=== PATIENT | male | born 1960 | race Hispanic/Latino ===

== ENCOUNTER 2017-09-16 06:42 | Observation (INO) | payer BC ==
[2017-09-16] MEDS ORDERED: NACL 0.9% 500 ML 500 ML IV SCH (07:00)
[2017-09-16] MEDS ORDERED: ECOTRIN PO ONE (07:00)
[2017-09-16 07:26] LABS: Basophils # (Auto) 0.1 K/mm3 (0.0-0.1); Basophils % (Auto) 1.2 % (0.0-1.8); Eosinophils # (Auto) 0.1 K/mm3 (0.0-0.4); Eosinophils % (Auto) 1.9 % (0.0-4.3); Hematocrit 41.3 % (35.5-45.6); Hemoglobin 14.4 gm/dl (11.8-15.2); Lymphocytes # (Auto) 1.7 K/mm3 (1.2-5.4); Lymphocytes % (Auto) 29.6 % (13.4-35.0); Mean Corpuscular HGB Conc 35 % (32-34); Mean Corpuscular Hemoglobin 28 pg (28-32); Mean Corpuscular Volume 80 fl (84-94); Monocytes # (Auto) 0.6 K/mm3 (0.0-0.8); Monocytes % (Auto) 10.8 % (0.0-7.3); Platelet Count 240 K/mm3 (140-440); Red Blood Count 5.16 M/mm3 (3.65-5.03); Red Cell Distribution Width 12.7 % (13.2-15.2)
[2017-09-16 07:36] LABS: BUN/Creatinine Ratio 17; Blood Urea Nitrogen 17 mg/dL (9-20); Calcium 8.7 mg/dL (8.4-10.2); Hemolysis Index 6; INR 0.97 (0.87-1.13)
[2017-09-16] MEDS ORDERED: VERSED ONE (08:24)
[2017-09-16] MEDS ORDERED: HEPARIN 10,000 UNITS/10 ML ONE (08:24)
[2017-09-16] MEDS ORDERED: XYLOCAINE 2% INFILTRATI ONE (08:24)
[2017-09-16] MEDS ORDERED: HEPARIN/NS 5000 UNIT/500ML(CATH LAB) 1,000 ML IR ONE (08:24)
[2017-09-16] MEDS ORDERED: CALAN ONE (08:24)
[2017-09-16] MEDS ORDERED: NITROGLYCERIN SYRINGE 3 ML ONE (08:24)
[2017-09-16] MEDS ORDERED: SUBLIMAZE ONE (08:25)
[2017-09-16] MEDS ORDERED: WATER FOR INJ (PF) 10 ML ONE (09:03)
[2017-09-16] MEDS ORDERED: NACL 0.9% 100 ML ONE (09:04)
[2017-09-16] MEDS: ANGIOMAX IV ONE ×2 (09:10→09:11)
[2017-09-16] MEDS ORDERED: AGGRASTAT DRIP (12.5 MG/250 ML) 12,500 MCG/250 ML BAG IV ONE (09:21)
[2017-09-16] MEDS ORDERED: EFFIENT PO ONE (09:22)
[2017-09-16] MEDS ORDERED: ALUM-MAG HYDROX-SIMETH 200-200-20MG/5ML ONE (09:22)
[2017-09-16] MEDS ORDERED: NITROSTAT SL PRN (09:43)
--- NOTE | 2017-09-16 10:52 | Cardiac Catherization Report ---
CARDIAC CATHETERIZATION REFERRING PHYSICIAN: Dr. Fauzia Saldana INDICATION FOR PROCEDURE: The patient is a pleasant 57-year-old gentleman with a history of CAD, PCI, hypertension, dyslipidemia. He has had a couple of episodes of dyspnea on exertion and has a significantly abnormal exercise stress test with inferior lateral ST depression. He is on multiple antianginal medications, referred for left heart catheterization. Risks, benefits, and potential alternatives explained at length prior to obtaining informed consent. PROCEDURE IN DETAIL: The patient was brought to the catheterization lab in a postabsorptive state, prepped and draped in sterile fashion. Live's test of the right hand was normal. A 2 mL of 2% lidocaine used to anesthetize the right wrist. A standard 6-Georgian hydrophilic sheath used to cannulate the right radial artery via modified Seldinger technique. All exchanges performed to exchange a J-tip guidewire. JL3.5 catheter used to engage the left main. No dampening or ventricularization. Cineangiography performed in all projections. JR4 catheter used to cross the aortic valve under fluoroscopic guidance. Left ventriculography performed in 30 NAVARRO and 30 SAUDI ARABIAN projections via hand injections, catheter flushed. Manual pullback performed with continuous pressure monitoring. Catheter used to engage the right coronary. No dampening or ventricularization. Cineangiography performed in all projections. Next, catheter removed from body of wire. DATA: Aortic pressure is 110/60, LV pressure is 110, LVEDP of 15 mmHg. Left ventriculography revealed normal systolic performance with estimated ejection fraction of 55% to 60%. No evidence of aortic stenosis or significant mitral regurgitation. The patient remained in normal sinus rhythm throughout the procedure. CORONARY ANATOMY: This is a right dominant system. Left main is without significant disease. It bifurcates in left anterior descending and left circumflex. Left system is somewhat small for an adult male. Left circumflex is a small to moderate sized vessel, courses AV groove, diminutive to AV groove circ, stent in the proximal OM1. There is a 99% stenosis just distal to this with BRIAN 2 flow. I believe this is the culprit vessel. Given abnormal stress test, the patient is already on multiple antianginals. LAD is a moderate sized vessel, courses anterior groove, intergroove, wraps around the apex, scattered luminal irregularities, but no obstructive disease identified. Right coronary is a moderate sized vessel, courses AV groove, distally bifurcates in the posterior descending branch, posterolateral branch. There is moderate diffuse small vessel disease in the ____ right PDA without significant disease. At this point, given markedly abnormal stress test symptoms and cardiac catheterization findings, we will proceed with PCI of culprit vessel, which is a 99% mid OM1. Angiomax was given. Abnormal ACT was confirmed. The patient was loaded with Effient and aspirin. EBU 3.5 guide used to engage the left main without difficulty. A Wayne wire used to cross the lesion without difficulty. A 2.0 x 12 balloon used to predilate the lesion without difficulty. We used a 2.25 x 12 Alpine Xience drug-eluting stent deployed at 12 MARIAMA for 30 seconds. Excellent angiographic result. Intracoronary nitroglycerin was given at 100 mcg. Intravascular ultrasound was performed and multiple passes were made. Intravascular ultrasound reveals apposed and well expanded stent. Mild disease in the proximal left circumflex, moderate diffuse small vessel disease distally. Left main without significant obstructive disease. Mild concentric plaque. No immediate complications, excellent angiographic result. SEDATION START TIME: 8:50 a.m. SEDATION STOP TIME: 9:30 a.m. I directly supervised the administration of moderate sedation with fentanyl and Versed. CONCLUSIONS: 1. Severe single vessel coronary artery disease with 99% OM1 culprit stenosis. A successful IVUS guided PCI with placement of drug-eluting stent (Xience Alpine 2.25 x 12 with excellent final angiographic and ultrasonographic result). Mild nonobstructive disease in the LAD and right coronary. Left main is patent. 2. Normal left ventricular systolic performance, estimated ejection fraction of 55% to 60%. 3. No evidence of aortic stenosis. 4. Normal LVEDP. The patient has been loaded with aspirin and Effient, will be standard radial care. Results of the procedure were explained at length to the patient and family. All questions and concerns were addressed. Follow up with Dr. Fauzia Saldana in the office. JOB# [id number]/[id number]
[2017-09-16] MEDS: TENORMIN PO SCH ×2 (15:47→22:50)
[2017-09-16] MEDS: CAPOTEN PO SCH (22:50)
[2017-09-17 07:04] LABS: Basophils # (Auto) 0.1 K/mm3 (0.0-0.1); Basophils % (Auto) 1.1 % (0.0-1.8); Eosinophils # (Auto) 0.1 K/mm3 (0.0-0.4); Eosinophils % (Auto) 1.9 % (0.0-4.3); Hematocrit 40.8 % (35.5-45.6); Hemoglobin 14.1 gm/dl (11.8-15.2); Lymphocytes # (Auto) 1.7 K/mm3 (1.2-5.4); Lymphocytes % (Auto) 31.6 % (13.4-35.0); Mean Corpuscular HGB Conc 35 % (32-34); Mean Corpuscular Hemoglobin 28 pg (28-32); Mean Corpuscular Volume 80 fl (84-94); Monocytes # (Auto) 0.5 K/mm3 (0.0-0.8); Monocytes % (Auto) 9.6 % (0.0-7.3); Platelet Count 222 K/mm3 (140-440); Red Blood Count 5.12 M/mm3 (3.65-5.03); Red Cell Distribution Width 12.9 % (13.2-15.2)
[2017-09-17 07:23] LABS: Creatine Kinase MB 1.2 ng/mL (0.0-4.0)
[2017-09-17 07:26] LABS: BUN/Creatinine Ratio 12; Blood Urea Nitrogen 13 mg/dL (9-20); Calcium 8.8 mg/dL (8.4-10.2); Hemolysis Index 6
--- NOTE | 2017-09-17 08:20 | XRay Report ---
AP CHEST: HISTORY: Post PCI AP view of the chest demonstrates a normal mediastinal and cardiac contour with clear lungs and normal bony and soft tissue structures. IMPRESSION: Unremarkable AP chest.
[2017-09-17] MEDS ORDERED: EFFIENT PO SCH (10:00)
[2017-09-17] MEDS ORDERED: BABY ASPIRIN PO SCH (10:00)
--- NOTE | 2017-09-17 11:15 | Short Stay Summary ---
Short Stay Documentation Date of service: 09/17/17 - History H&P: obtained from office - Allergies and Medications Current Medications: Allergies No Known Allergies Allergy (Verified 09/16/17 07:15) Home Medications Medication Instructions Recorded Confirmed Last Taken Type Aspirin EC [Aspirin Enteric Coated 81 mg PO QDAY 09/16/17 09/16/17 2 Weeks Ago History TAB] ~09/02/17 Atenolol [Tenormin] 25 mg PO BID 09/16/17 09/16/17 09/15/17 History Atorvastatin Calcium [Lipitor] 10 mg PO QDAY 09/16/17 09/16/17 09/15/17 History Captopril 50 mg PO BID 09/16/17 09/16/17 09/16/17 04:30 History Ibuprofen [Motrin] 800 mg PO Q8HR PRN 09/16/17 09/16/17 1 Month Ago History ~08/16/17 Nitroglycerin [Nitrostat] 0.4 mg SL Q5M PRN 09/16/17 09/16/17 Unknown History Sitagliptin Phos/Metformin HCl 1 each PO BID 09/16/17 09/16/17 09/15/17 History [Janumet 50-500 mg Tablet] Active Medications Aspirin (Baby Aspirin) 81 mg PO QDAY [facility] Atenolol (Tenormin) 25 mg PO BID [facility] Last Admin: 09/16/17 22:50 Dose: 25 mg Atorvastatin Calcium (Lipitor) 40 mg PO QHS [facility] Last Admin: 09/16/17 22:50 Dose: 40 mg Captopril (Capoten) 50 mg PO BID [facility] Last Admin: 09/16/17 22:50 Dose: 50 mg Nitroglycerin (Nitrostat) 0.4 mg SL Q5M PRN PRN Reason: Chest Pain Prasugrel (Effient) 10 mg PO QDAY [facility] - Physical exam General appearance: no acute distress Integumentary: no rash, no growths, no abnormal pigmentation Lungs: Clear to auscultation Heart: Regular rate, Normal S1, Normal S2 Gastrointestinal: normal, normoactive bowel sounds Extremities: no ischemia, pulses intact, pulses symmetrical, No edema Neurological: Normal gait, Normal speech, Strength at 5/5 X4 ext - Brief post op/procedure progress note Date of procedure: 09/16/17 Pre-op diagnosis: CAD Post-op diagnosis: same Procedure: LHC with PCI - see cath report Anesthesia: local Estimated blood loss: none Condition: stable - Hospital course Hospital course: Pt presented for scheduled elective LHC and subsequently underwent PCI. He was admitted for overnight observation. He remained clinically and hemodynamically stable throughout procedure and recovery and is medically stable for discharge home today. - Disposition Condition at discharge: Stable Disposition: [id number] TO HOME OR SELFCARE - Discharge Diagnoses (1) CAD (coronary artery disease) Status: Chronic (2) Stented coronary artery Status: Chronic (3) HTN (hypertension) Status: Chronic (4) Dyslipidemia Status: Chronic Short Stay Discharge Plan Activity: advance as tolerated Diet: low fat, low cholesterol, low salt Wound: open to air, keep clean and dry, per your surgeon's advice Follow up with: AHMET CHAVARRIA MD [Primary Care Provider] - 7 Days HOSSEIN VALLEJO MD [Staff Physician] - 7 Days ([place] office on 09/30/2017 @ 11:15AM) Prescriptions: AtorvaSTATin [Lipitor] 40 mg PO QHS #30 tablet Prasugrel [Effient] 10 mg PO QDAY #30 tablet
[2017-09-17] MEDS: TENORMIN PO SCH (11:34)
[2017-09-17] MEDS: CAPOTEN PO SCH (11:34)
[2017-09-17 11:54] VITALS: BP 130/64
== END 2017-09-17 14:57 | disposition home or self-care (01) ==
LOC: CATHLABREC 06:42 → 4A 09:41
PROVIDERS: ADMIT Internal Medicine; ATTEND Internal Medicine
DX: I25.10 Atherosclerotic heart disease of native coronary artery without angina pectoris (principal); I10 Essential (primary) hypertension; E78.5 Hyperlipidemia, unspecified; E11.9 Type 2 diabetes mellitus without complications; Z87.891 Personal history of nicotine dependence; Z82.49 Family history of ischemic heart disease and other diseases of the circulatory system
CPT/HCPCS: 36415; 71045; 80048; 82550; 82553; 82962; 84484; 85025; 85347; 85610; 85730; 92978; 93005; 93010; 93458; A9270; C1725; C1753; C1769; C1874; C1887; C1894; C9600; G0378; J0583; J1644; J2250; J3010; J3246; J7040; 92928; Q9967